=== PATIENT | female | born 1995 | race Caucasian/White ===

== ENCOUNTER 2019-01-15 21:20 | Emergency (ER) | payer SELFPAY ==
[~2019-01-15] VITALS: Ht 162.6 cm; Wt 95.5 kg
[2019-01-15 21:26] VITALS: Ht 162.6 cm; Wt 95.5 kg
[2019-01-15] MEDS ORDERED: TORADOL10 MG PO (22:58)
[2019-01-15 23:31] VITALS: BP 124/76
== END 2019-01-15 23:31 | disposition home or self-care (01) ==
LOC: D.ER 21:20
DX: S93.402A Sprain of unspecified ligament of left ankle, initial encounter (principal); X50.1XXA Overexertion from prolonged static or awkward postures, initial encounter; Y93.89 Activity, other specified; Y92.89 Other specified places as the place of occurrence of the external cause